=== PATIENT | female | born 1990 | race Caucasian/White ===

== ENCOUNTER 2017-07-01 13:14 | Observation (INO) | payer OTHER ==
[~2017-07-01] VITALS: Ht 160 cm; Wt 76.7 kg
[2017-07-01] MEDS ORDERED: ASACOL HD800 MG (14:00)
[2017-07-01] MEDS ORDERED: ONDANSETRON HCL INJ 2 MG/ML VIAL IV STA (14:03)
[2017-07-01] MEDS ORDERED: SODIUM CHLORIDE 0.9% 1000ML 1,000 ML IV SCH (14:15)
[2017-07-01] MEDS ORDERED: MORPHINE SULFATE 5 MG/ML VIAL IV STA (14:22)
[2017-07-01] MEDS ORDERED: IOPAMIDOL 300MG/ML 100 ML INFUS..BTL IV ONE (14:45)
[2017-07-01] MEDS ORDERED: MORPHINE SULFATE 2 MG/ML SYR IV STA (16:13)
[2017-07-01] MEDS ORDERED: ONDANSETRON HCL INJ 2 MG/ML VIAL IV PRN (16:45)
[2017-07-01] MEDS ORDERED: MORPHINE SULFATE 2 MG/ML SYR IV PRN (16:45)
[2017-07-01] MEDS: D5.45%NS/KCL 20MEQ 1,000 ML IV SCH (18:38)
[2017-07-01 18:45] VITALS: BP 99/68
[2017-07-01] MEDS ORDERED: ONDANSETRON HCL 4 MG ORAL DISINTEGRATING TAB PO PRN (18:45)
[2017-07-01 19:59] VITALS: BP 99/68
[2017-07-01 20:00] VITALS: BP 112/66
[2017-07-01 20:37] VITALS: BP 112/66
[2017-07-01 21:33] VITALS: BP 112/66
[2017-07-02] VITALS: BP 95/55
[2017-07-02] MEDS: D5.45%NS/KCL 20MEQ 1,000 ML IV SCH (02:45)
[2017-07-02 04:00] VITALS: BP 101/49
[2017-07-02 07:03] LABS: BASOPHILS % 0.5 % (0.0-1.0); EOSINOPHILS # (AUTO) 0.2 (0.0-0.4); EOSINOPHILS % 2.2 % (0.0-6.0); HEMATOCRIT 36.5 % (34.2-44.1); HEMOGLOBIN 12.8 g/dL (12.0-16.0); LYMPHOCYTES # (AUTO) 2.5 (1.0-3.2); LYMPHOCYTES % 34.7 % (18.0-39.1); MEAN CORPUSCULAR HEMOGLOBIN 32.7 pg (28-32); MEAN CORPUSCULAR HGB CONC 35.1 g/dL (31-35); MEAN CORPUSCULAR VOLUME 93.4 fL (81-99); MONOCYTES # (AUTO) 0.7 (0.2-0.8); MONOCYTES % 9.6 % (4.4-11.3); NEUTROPHILS # (AUTO) 3.9 (2.1-6.9); NEUTROPHILS % 52.7 % (38.7-80.0); PLATELET COUNT 187 x10e3/uL (140-360); RED BLOOD COUNT 3.91 x10e6/uL (3.6-5.1); RED CELL DISTRIBUTION WIDTH 11.5 % (11.7-14.4)
[2017-07-02 07:26] LABS: ALANINE AMINOTRANSFERASE 24 IU/L (0-55); ALBUMIN 2.9 g/dL (3.5-5.0); ALBUMIN/GLOBULIN RATIO 1.3 (0.8-2.0); ALKALINE PHOSPHATASE 45 IU/L (40-150); ANION GAP 8.9 mmol/L (8-16); BLOOD UREA NITROGEN 16 mg/dL (7-26); BUN/CREATININE RATIO 17 (6-25); CALCIUM 8.4 mg/dL (8.4-10.2); CARBON DIOXIDE 24 mmol/L (22-29); CHLORIDE 110 mmol/L (98-107); CREATININE, SERUM 0.96 mg/dL (0.57-1.11); EST GLOMERULAR FILTRATION RATE > 60 ML/MIN (60-); GLUCOSE 99 mg/dL (74-118); POTASSIUM 3.9 mmol/L (3.5-5.1); SODIUM 139 mmol/L (136-145)
[2017-07-02 07:36] VITALS: BP 103/52
--- NOTE | 2017-07-02 11:27 | History and Physical ---
A 27-year-old female comes in with abdominal pain and vomiting. HISTORY OF PRESENT ILLNESS: This is Ms. Isabel Smith with a history of Crohn's disease was in her usual state of health until a day prior to admission. The patient started to have nausea and vomiting. The patient came into the emergency room with a history of Crohn's and was admitted for dehydration. PAST MEDICAL HISTORY: As mentioned above. Crohn's disease. MEDICATIONS: She is not taking any, but has reported Asacol in the past. ALLERGIES: NO KNOWN ALLERGIES. SOCIAL HISTORY: No ETOH. No drug abuse either. REVIEW OF SYSTEMS: Negative for chest pain. No shortness of breath. Positive for some nausea and vomiting. No diarrhea. No constipation. No rectal bleeding, hematochezia or hematemesis either. PHYSICAL EXAMINATION VITAL SIGNS: Temperature is 95.6, blood pressure 112/66, pulse ox 99%. HEENT: Normocephalic and atraumatic. Nonicteric. CV: S1 and S2 normal. Regular rate and rhythm. ABDOMEN: Slightly tender in the left lower area and also in the epigastrium. SKIN: Warm. LABORATORY VALUES: Initial white count was 8.6, hemoglobin 15.3, hematocrit 43.6. Sodium is 142, potassium 4.1, BUN 11, creatinine 0.9, glucose 124. Urine was negative. The patient was given morphine and the pain got better. The patient was given fluids and the patient feels better. HCG was negative. Urine drug screen was negative too. ASSESSMENT 1. Crohn's disease in the small intestine without complications. 2. Acute noninfectious gastroenteritis. PLAN: Continue with fluid resuscitation. The patient is feeling better. Will check her blood count today. If the patient is feeling better, the patient can be discharged on Asacol today. Further recommendations as an outpatient. The patient will follow up with GI at [facility]. Job#: [id number] LINDSAY
== END 2017-07-02 09:59 | disposition home or self-care (01) ==
LOC: FSED 13:14 → IMCU 17:59
PROVIDERS: ADMIT Internal Medicine; ATTEND Internal Medicine
DX: K52.9 Noninfective gastroenteritis and colitis, unspecified (principal); E86.0 Dehydration; K50.00 Crohn's disease of small intestine without complications
CPT/HCPCS: 36415; 74177; 80053 ×2; 81003; 81025; 85025 ×2; 99284; G0378 ×2; J2270 ×2; J2405; J7030; Q9967

== ENCOUNTER → 2018-06-17 | Day surgery (SDC) | payer BC ==
[~2018-06-17] MED LIST: ASACOL HD800 MG; FENTANYL CITRATE/PF 100MCG/2 ML INJ ONE; HYOSCYAMINE SULFATE 0.5 MG/ML INJ ONE; KETAMINE HCL INJ 50 MG/ML 10 ML VIAL ONE; LIALDA1.2 GM; MIDAZOLAM HCL 5 MG/ML VIAL ONE; PROPOFOL IV EMULSION 10 MG/ML 50 ML VIAL ONE
[2018-06-17 12:23] LABS: WBC,FECAL (FECAL LACTOFERRIN) POSITIVE (NEGATIVE)
--- NOTE | 2018-06-17 13:20 | Operative Report ---
DATE OF PROCEDURE: 06/17/2018 SURGEON: Venkat Tsang MD PROCEDURE: Colonoscopy with polypectomy and biopsies. INDICATIONS FOR COLONOSCOPY: The patient with a history of Crohn disease with intermittent loose stools, bright red blood per rectum. Rule out IBD exacerbation. MEDICATIONS: The patient was done under MAC, please see anesthesiologist's note. PROCEDURE IN DETAIL: With the patient in left lateral decubitus position, flexible fiberoptic Olympus colonoscope was inserted into the rectum with ease and advanced all the way to the cecum. There were cluster of aphthous ulcers noted in the cecal pouch and biopsies were obtained. The ileocecal valve was intubated and the scope was advanced into the terminal ileum. Two minute aphthous ulcers were noted in the terminal ileum and biopsies were obtained. The scope was then withdrawn back into the colon. It was then withdrawn slowly. Mucosa overlying the ascending, transverse, descending, and sigmoid appeared to be within normal limits. Three polyps were hot biopsied from the rectum. Some aphthous-like ulcers were noted in the distal rectum and biopsies were obtained. The scope was then retroflexed into the distal rectum and moderate-sized internal hemorrhoids were noted, none of which was actively bleeding. The scope was then straightened out, it was subsequently withdrawn after securing an adequate stool specimen that was sent for the appropriate stool studies. The patient tolerated the procedure well. IMPRESSION: 1. Ileitis, mild, biopsies obtained. 2. Cluster of aphthous like ulcers, cecal pouch, biopsies obtained. 3. Rectal polyps x3, hot biopsied. 4. Distal proctitis, biopsies obtained. 5. Internal hemorrhoids, none actively bleeding. PLAN: Follow up histology. Follow up stool studies. Check IBD panel, CRP and sedimentation rate. Continue Lialda for now. Add VSL#3 one p.o. daily. Timing of followup colonoscopy pending pathology report. Venkat Tsang MD [facility] [place] /[id number] cc: Abner Amin DO
[2018-06-17 15:15] LABS: C DIFFICILE TOXIN A&B AMP PROB NEGATIVE (NEGATIVE)
== END | disposition home or self-care (01) ==
LOC: OR 08:27
PROVIDERS: ATTEND Internal Medicine Gastroenterology
DX: K50.90 Crohn's disease, unspecified, without complications (principal); K63.3 Ulcer of intestine; K62.1 Rectal polyp; K62.89 Other specified diseases of anus and rectum; K64.8 Other hemorrhoids; Z88.1 Allergy status to other antibiotic agents; Z88.3 Allergy status to other anti-infective agents; Z68.33 Body mass index [BMI] 33.0-33.9, adult
CPT/HCPCS: 36415; 45380; 45384; 81025; 83630; 83993; 85651; 86140; 86256; 86671; 87045; 87177; 87328; 87493; J1980; J2250; J2704